=== PATIENT | female | born 1930 | race Caucasian/White ===

== ENCOUNTER 2020-05-31 13:55 | Emergency (ER) | payer MEDICARE, BC ==
[~2020-05-31] VITALS: Ht 170.2 cm; Wt 66.7 kg
[2020-05-31] MEDS ORDERED: AMLODIPINE BESYL5 MG PO (14:18)
[2020-05-31] MEDS ORDERED: COLACE100 M1 PO (14:19)
[2020-05-31] MEDS ORDERED: B-121000 MC1 PO (14:19)
[2020-05-31] MEDS ORDERED: FLONASE SENSIM5.9 ML NS (14:20)
[2020-05-31] MEDS ORDERED: DILTIAZEM 24HR180 M1 PO (14:20)
[2020-05-31] MEDS ORDERED: SYNTHROID0.05 MG PO (14:21)
[2020-05-31] MEDS ORDERED: LASIX40 M1 PO (14:21)
[2020-05-31] MEDS ORDERED: MELATONIN3 M3 PO (14:21)
[2020-05-31] MEDS ORDERED: POTASSIUM CHLO20 ME3 PO (14:22)
[2020-05-31] MEDS ORDERED: MACROBID 1100 MG/CAP PO (14:22)
[2020-05-31] MEDS ORDERED: MIRALAX17 GM PO (14:22)
[2020-05-31] MEDS ORDERED: CARAFATE 1GM1 G PO (14:23)
[2020-05-31] MEDS ORDERED: PRILOSEC 20MG20 MG PO (14:23)
[2020-05-31] MEDS ORDERED: PROLIA60 MG/ML SC (14:23)
[2020-05-31] MEDS ORDERED: VITAMIN C500 M7 PO (14:24)
[2020-05-31] MEDS ORDERED: ZYRTEC ALLERGY10 MG PO (14:24)
[2020-05-31 15:06] LABS: HEMATOCRIT 36.1 % (37.0-47.0); HEMOGLOBIN 10.8 g/dL (12.5-16.0); MEAN CELL VOLUME 97 fl (78-100); MEAN CORPUSCULAR HEMOGLOBIN 29 pg (27-31); MEAN CORPUSCULAR HGB CONC 30 g/dL (33-37); MEAN PLATELET VOLUME 10.7 fl (7.4-10.4); PLATELET COUNT 166 K/mm3 (130-400); RED BLOOD COUNT 3.72 M/mm3 (4.10-5.30); RED CELL DISTRIBUTION WIDTH 14.2 % (11.5-14.5); WHITE BLOOD COUNT 7.5 K/mm3 (4.8-10.8)
[2020-05-31 15:18] LABS: POTASSIUM 3.8 mmol/L (3.5-5.1)
[2020-05-31 15:19] LABS: CALCIUM 8.7 mg/dL (8.3-10.5)
[2020-05-31 15:27] LABS: HYPOCHROMIA 1+; LYMPHOCYTE 10 % (20-51); MONOCYTE 7 % (3-10); NEUTROPHILS 83 % (42-75)
[2020-05-31 16:15] LABS: URINE COLOR YELLOW
[2020-05-31 16:16] LABS: URINE APPEARANCE CLEAR; URINE BILIRUBIN NEGATIVE (NEGATIVE); URINE BLOOD NEGATIVE (NEGATIVE); URINE GLUCOSE NEGATIVE (NEGATIVE); URINE KETONE NEGATIVE (NEGATIVE); URINE LEUKOCYTE ESTERASE NEGATIVE (NEGATIVE); URINE NITRATE NEGATIVE (NEGATIVE); URINE PROTEIN(semi-quant) NEGATIVE (NEGATIVE); URINE UROBILINOGEN NORMAL (NORMAL); URINE WBC 0-1 /hpf (0-3)
[2020-05-31 18:30] VITALS: BP 150/74
== END 2020-05-31 18:30 | disposition short-term general hospital (02) ==
LOC: ED 13:55
PROVIDERS: Family Medicine
DX: S72.011A Unspecified intracapsular fracture of right femur, initial encounter for closed fracture (principal); I50.9 Heart failure, unspecified; F03.90 Unspecified dementia, unspecified severity, without behavioral disturbance, psychotic disturbance, mood disturbance, and anxiety; K21.9 Gastro-esophageal reflux disease without esophagitis; I48.91 Unspecified atrial fibrillation; G47.30 Sleep apnea, unspecified; Z20.828 Contact with and (suspected) exposure to other viral communicable diseases; Z99.81 Dependence on supplemental oxygen; Z88.0 Allergy status to penicillin; W19.XXXA Unspecified fall, initial encounter; Y92.129 Unspecified place in nursing home as the place of occurrence of the external cause
CPT/HCPCS: J1940; J3010